=== PATIENT | male | born 1940 | race Caucasian/White ===

== ENCOUNTER 2017-03-23 09:41 | Emergency (ER) | payer MEDICARE ==
[~2017-03-23] VITALS: Ht 172.7 cm; Wt 60.0 kg
[2017-03-23 10:09] VITALS: BP 105/70
== END 2017-03-23 10:59 | disposition home or self-care (01) ==
LOC: ER 10:07
DX: T83.098A Other mechanical complication of other urinary catheter, initial encounter (principal); N40.0 Benign prostatic hyperplasia without lower urinary tract symptoms; F17.200 Nicotine dependence, unspecified, uncomplicated; Y73.8 Miscellaneous gastroenterology and urology devices associated with adverse incidents, not elsewhere classified
CPT/HCPCS: 99281

== ENCOUNTER 2017-03-25 15:30 | Emergency (ER) | payer MEDICARE ==
[~2017-03-25] VITALS: Ht 170.2 cm; Wt 67.0 kg
[2017-03-25] MEDS ORDERED: FENTANYL CITRATE/PF 50MCG/ML 2ML VIAL IV ONE (20:45)
[2017-03-25 22:00] VITALS: BP 120/68
[2017-03-25 23:25] LABS: BASOPHILS % 0.7 % (0.0-2.0); EOSINOPHILS % 1.7 % (0.0-5.0); HEMATOCRIT. 41.5 % (42.0-52.0); LYMPHOCYTES % 12.3 % (20.0-50.0); MEAN CORPUSCULAR HEMOGLOBIN 30.4 pg (28.0-32.0); MEAN CORPUSCULAR VOLUME 90.2 fL (80.0-94.0); MEAN PLATELET VOLUME 8.2 fl (7.4-10.4); MONOCYTES % 8.5 % (2.0-8.0); NEUTROPHILS % 76.8 % (40.0-76.0); PLATELET 220 x1000/uL (130-400); RED CELL DISTRIBUTION WIDTH 13.1 % (11.6-14.6)
== END 2017-03-26 00:04 | disposition short-term general hospital (02) ==
LOC: ER 16:53
DX: R31.0 Gross hematuria (principal); R33.8 Other retention of urine; N40.1 Benign prostatic hyperplasia with lower urinary tract symptoms
CPT/HCPCS: 36415; 51702; 76857; 80048; 85025; 96374; 99285; J3010; A4315